=== PATIENT | female | born 1970 | race American Indian/Alaskan Native ===

== ENCOUNTER 2018-06-22 10:41 | Outpatient (CLI) | payer BC | END 2018-06-22 10:42 | disposition home or self-care (01) | LOC: ECHO 10:41 | PROVIDERS: ATTEND Internal Medicine Cardiovascular Disease | DX: R06.00 Dyspnea, unspecified (principal); R07.2 Precordial pain | CPT/HCPCS: 93306 ==

== ENCOUNTER 2018-06-27 06:25 | Day surgery (SDC) | payer BC ==
[2018-06-27] MEDS ORDERED: ECOTRIN PO NR (06:39)
[2018-06-27] MEDS: NACL 0.9% 500 ML 500 ML IV SCH ×2 (07:15→08:55)
[2018-06-27 07:27] LABS: Basophils % (Auto) 0.8 % (0.0-1.8); Eosinophils # (Auto) 0.1 K/mm3 (0.0-0.4); Eosinophils % (Auto) 2.2 % (0.0-4.3); Hemoglobin 11.9 gm/dl (10.1-14.3); Lymphocytes % (Auto) 28.2 % (13.4-35.0); Mean Corpuscular HGB Conc 33 % (30-34); Mean Corpuscular Volume 89 fl (79-97); Monocytes # (Auto) 0.4 K/mm3 (0.0-0.8); Monocytes % (Auto) 12.1 % (0.0-7.3); Platelet Count 189 K/mm3 (140-440); Red Blood Count 4.05 M/mm3 (3.65-5.03); Red Cell Distribution Width 15.4 % (13.2-15.2)
[2018-06-27] MEDS ORDERED: HEPARIN/NS 5000 UNIT/500ML(CATH LAB) 1,000 ML IR ONE (08:20)
[2018-06-27 08:22] LABS: INR 1.09 (0.87-1.13)
[2018-06-27 08:23] LABS: Partial Thromboplastin Time 24.4 Sec. (24.2-36.6)
[2018-06-27 08:24] LABS: BUN/Creatinine Ratio 12; Blood Urea Nitrogen 7 mg/dL (7-17); Calcium 9.1 mg/dL (8.4-10.2); Hemolysis Index 28
[2018-06-27] MEDS: VERSED ONE ×3 (08:54→09:10)
[2018-06-27] MEDS: SUBLIMAZE ONE ×3 (08:54→09:07)
[2018-06-27] MEDS: XYLOCAINE 2% INFILTRATI ONE ×3 (08:55→09:10)
--- NOTE | 2018-06-27 09:38 | Short Stay Summary ---
Short Stay Documentation Date of service: 06/27/18 - History H&P: obtained from office - Allergies and Medications Current Medications: Allergies No Known Allergies Allergy (Unverified 06/27/18 06:25) Home Medications Medication Instructions Recorded Confirmed Last Taken Type Bisoprolol [Zebeta] 5 mg PO DAILY 06/27/18 06/27/18 3 Days Ago History ~06/24/18 Active Medications Aspirin (Ecotrin) 325 mg PO ONCE NR Stop: 06/27/18 13:00 Last Admin: 06/27/18 07:28 Dose: 325 mg Documented by: Sodium Chloride (Nacl 0.9% 500 Ml) 500 mls @ 50 mls/hr IV DIRECT RAVEN Stop: 06/27/18 16:59 Last Admin: 06/27/18 08:55 Dose: 50 mls/hr Documented by: - Physical exam General appearance: no acute distress HEENT: Atraumatic Lungs: Clear to auscultation Breasts: deferred Heart: Regular rate Gastrointestinal: normal Female Genitourinary: deferred Rectal Exam: deferred Extremities: no ischemia Neurological: Normal gait - Brief post op/procedure progress note Date of procedure: 06/27/18 Pre-op diagnosis: SOB Post-op diagnosis: same Procedure: LHC, RHC and LV gram Anesthesia: MAC Findings: See report Surgeon: CAMMY MCGARRY Estimated blood loss: none Pathology: none Condition: stable - Hospital course Hospital course: Uneventful - Disposition Condition at discharge: Good Disposition: DC-01 TO HOME OR SELFCARE Short Stay Discharge Plan Activity: other (No driving for 2 days) Weight Bearing Status: Non-Weight Bearing (for 2 days) Diet: low salt Wound: keep clean and dry Follow up with: PRIMARY CARE, [Primary Care Provider] - 7 Days
--- NOTE | 2018-06-27 11:34 | Cardiac Catherization Report ---
LEFT HEART CATHETERIZATION AND RIGHT HEART CATHETERIZATION INDICATION FOR PROCEDURE: Shortness of breath. ORDERING PHYSICIAN: Ra Chisholm MD PROCEDURES PERFORMED: 1. Selective left and right coronary angiography. 2. Left ventriculography. 3. Right heart catheterization with hemodynamic measurement and oxygen saturation run. DESCRIPTION OF PROCEDURE: After obtaining written consent, the patient was draped using sterile technique. A 2% lidocaine was injected into the right groin. Using the micropuncture technique, a 5-Palauan vascular sheath was inserted into the right common femoral artery and a 7-Palauan vascular sheath was inserted into the right femoral vein. A 5-[place]au[place] JL4 catheter was used to selectively engage the left coronary artery and a 5-Palauan JR4 catheter was used to selectively engage the right coronary artery. A 5-Palauan JR4 catheter was used to hand inject left ventriculogram. A 7-Palauan Hemphill-Indra catheter was used to measure right-sided hemodynamics and perform an oxygen saturation run. No complications occurred during the procedure. Hemostasis was achieved at the end of the procedure using a 5-Palauan Angio-Seal for the arterial side and manual pressure for the venous side ESTIMATED BLOOD LOSS: Minimal. SPECIMEN REMOVED: None. SEDATION: Total sedation administered with 2 mg of IV Versed and 50 mcg of IV fentanyl. Physician/patient [id number] sedation start time is 9:02 a.m. Physician/patient [id number] sedation stop time 9:29 a.m. Total sedation time 27 minutes. FINDINGS: HEMODYNAMICS: 1. Mean pulmonary capillary wedge pressure is 9 mmHg. 2. Mean PA pressure of 14 mmHg. Right PA systolic pressure 22 mmHg and the PA diastolic pressure 8 mmHg. 3. Right ventricular systolic pressure 21 mmHg. Right ventricular end diastolic pressure 8 mmHg. 4. Mean right atrial pressure 5 mmHg. 5. Aortic pressure 161/84. LV systolic pressure 158 mmHg with an LVEDP at 11 mmHg. 6. Cardiac output is 6.25 liters per minute and the cardiac index of 3.57 L per minute per meter square. 7. PA saturation 70%, RV saturation 70%, RA saturation 72% and AO saturation 95%. CARDIAC STRUCTURES: The left ventricle is normal in size and systolic function with an ejection fraction estimated at 60%. No regional wall motion abnormality detected. CORONARY ANATOMY: 1. This is a right dominant circulation. 2. The left main is angiographically normal. 3. The LAD is angiographically normal. 4. The left circumflex artery is angiographically normal. 5. The right coronary artery is a dominant, angiographically normal vessel. IMPRESSION: 1. Normal right dominant coronary circulation. 2. Normal left ventricular size and systolic function. 3. Normal right and left-sided filling pressures. 4. Normal pulmonary artery pressures. 5. Normal cardiac output and cardiac index. 6. No evidence of an intracardiac shunt. RECOMMENDATIONS: Follow up with primary algorithm developer for noncardiac shortness of breath. [facility]# [id number] SURI/MAIKEL
[2018-06-27 12:03] VITALS: BP 122/84
== END 2018-06-27 12:30 | disposition home or self-care (01) ==
LOC: CATHLABREC 06:25
PROVIDERS: ATTEND Internal Medicine Cardiovascular Disease
DX: R07.2 Precordial pain (principal); R06.02 Shortness of breath; I10 Essential (primary) hypertension; Z79.899 Other long term (current) drug therapy; Z87.891 Personal history of nicotine dependence; Z86.73 Personal history of transient ischemic attack (TIA), and cerebral infarction without residual deficits
CPT/HCPCS: 36415; 80048; 84703; 85025; 85610; 85730; 93005; 93010; 93460; 99156; 99157; C1760; C1894; J1644; J2250; J3010; J7040; Q9967